=== PATIENT | female | born 1980 | race Caucasian/White ===

== ENCOUNTER 2023-10-23 07:33 | Emergency (ER) | payer BC, SELFPAY ==
--- NOTE | ~2023-10-23 | XR_ITS ---
EXAMINATION: XR CHEST CLINICAL INFORMATION: Chest pain. COMPARISON: None available. TECHNIQUE: Frontal view of the chest was obtained. FINDINGS: The lungs are well-expanded. No focal consolidation. No pleural effusion. Cardiac silhouette is within normal limits. XR/XR chest 1V IMPRESSION: No acute abnormality. Electronically signed by: Gabriel Floyd MD 10/23/2023 10:27 AM EDT
--- NOTE | 2023-10-23 07:40 | ECG_ITS ---
Test Reason : chest pain Blood Pressure : / mmHG Vent. Rate : 079 BPM Atrial Rate : 079 BPM P-R Int : 164 ms QRS Dur : 080 ms QT Int : 398 ms P-R-T Axes : 021 031 035 degrees QTc Int : 456 ms Normal sinus rhythm Normal ECG No previous ECGs available Referred By: Generic ED Physician Electronically Signed By:HILLARY GOFF
[2023-10-23 07:42] VITALS: BP 133/71; PULSE 77; RESP 16; TEMP 36.6; BMI 52.2
--- NOTE | 2023-10-23 08:25 | ED.BACK ---
HPI - Back Pain/Injury General Chief Complaint: Back Pain/Injury Stated Complaint: CP-back pain Time Seen by Provider: 10/23/23 07:42 Source: patient and family Mode of arrival: ambulatory Limitations: no limitations History of Present Illness ED Provider: ROSI PAGAN Narrative: 43 yo female with PMH of asthma, obesity, HTN here with c/o going for a walk Friday nothing unusual occurred no trauma then she now notes L upper posterior back pain worse with movements and deep breaths. She denies recent travel/procedures, not on OCPs. She has never had VTE before. She has no chest pain. Tried tyelnol without relief today. No recent URI today. MD elicited complaint: back pain Onset (ago): day(s) (4) Timing: constant Severity: moderate Similar Symptoms Previously: No Location: left upper back Radiation: none Exacerbating factors: movement and deep breaths Relieving factors: none Context: unknown Associated symptoms: denies other symptoms Treatments prior to arrival: acetaminophen Work related injury: No Related Data Previous Rx's ?Medication ?Instructions ?Recorded cyclobenzaprine 10 mg tablet 10 mg PO TID PRN muscle spasm #20 10/23/23 tabs ibuprofen 600 mg tablet 600 mg PO Q6H PRN pain #30 tabs 10/23/23 Allergies Allergy/AdvReac Type Severity Reaction Status Date / Time acetaminophen [From Percocet] AdvReac Nausea and Verified 10/23/23 07:47 Vomiting oxycodone [From Percocet] AdvReac Nausea and Verified 10/23/23 07:47 Vomiting Review of Systems Review of Systems: Constitutional : No Weight loss, No Fever, No Chills, ENT/Mouth : No Hearing loss, No Ear Pain, No Nasal Congestion, No Sinus Pain, No Hoarseness, No sore throat, No Rhinorrhea, No Swallowing Difficulty Cardiovascular : No Chest Pain, No SOB Respiratory : No Cough, No Dyspnea Gastrointestinal : No Nausea, No Vomiting, No Diarrhea, No abdominal Pain, No Hematochezia, No Melena Genitourinary : No Dysuria, No Urinary Frequency, No Hematuria, No Urinary Incontinence, Musculoskeletal : positive back pain Skin : No Skin Lesions, No rash Neuro : No Weakness, No Numbness, No Paresthesias, no loss of bowel or bladder incontinence, no saddle anesthesia all other systems reviewed and are negative [facility] Past Medical History Attestation statement: The following information was validated with the patient. Source: old records reviewed Medical History HTN (hypertension) Asthma Social History Social History Alcohol intake: current Alcohol intake frequency: a few times a month Alcohol type: wine Smoked in Last 30 Days: No Use of substances other than those prescribed or required for medical reasons: No Advance Directives: Yes Advance Directives Information Provided: Yes Advance Directives on File: No Do you have a plan to hurt others: No Plan Patient : No Physical Exam Vital Signs: Vital Signs: Last Vital Signs Temp 97.9 F 10/23/23 07:42 Pulse 77 10/23/23 07:42 Resp 16 10/23/23 07:42 BP 133/71 10/23/23 07:42 O2 Del Method Room Air 10/23/23 07:42 BMI result Body Mass Index 52.2 Appearance: Alert. Oriented X3. No acute distress. Eyes: Pupils equal, round and reactive to light. ENT: Pharynx normal. Neck: Normal inspection. Neck supple. CVS: Normal heart rate and rhythm. Pulses normal. Respiratory: No respiratory distress. Breath sounds normal. Abdomen: Soft and nontender. Back: L upper ttp with palpation to rhomboids Skin: Skin warm and dry. Normal skin color. Normal skin turgor. Extremities: No lower extremity edema. No calf ttp Neuro: Oriented X 3. No motor deficit. No sensory deficit. Medications Administered Discontinued Medications Generic Name Dose Route Start Last Admin Trade Name Ramu PRN Reason Stop Dose Admin Cyclobenzaprine HCl 10 mg 10/23/23 08:16 10/23/23 08:49 Cyclobenzaprine Hcl 10 Mg Tablet PO 10/23/23 08:17 10 mg ONCE ONE Administration Ketorolac Tromethamine 15 mg 10/23/23 08:16 10/23/23 08:49 Ketorolac Tromethamine 15 Mg/Ml Vial IVPUSH 10/23/23 08:17 15 mg ONCE ONE Administration Medical Decision Making Medical Decision Making MDM Narrative: 43 yo female with PMH of asthma, obesity, HTN here with c/o L upper back pain that is worse with movements and pleuritic in nature she is obese so she could have VTE there was no known trauma though it is reproduceable at this time labs, EKG, CXR, ddimer - start on toradol and flexeril. Low to mod probabiility of VTE. Differential Diagnosis Differential Diagnoses: The differential diagnosis associated with the presentation includes back pain, muscle spasm, VTE Admission/Observation Consideration of admission/observation: Escalation of care including admission/observation considered work up negative at this time stable for DC Lab Data MDM Lab Attestation statement: I reviewed the patient's lab results. 10/23/23 09:26 10/23/23 09:26 Labs: Lab Results 10/23/23 Range/Units 09:26 WBC 8.3 (4.8-10.8) X10*3/uL RBC 4.87 (4.20-5.50) X10*6/uL Hgb 14.0 (12.0-16.0) g/dl Hct 42.9 (37.0-47.0) % MCV 88.1 (80.0-98.0) fL MCH 28.7 (27.0-33.0) pg MCHC 32.6 (31.0-35.0) g/dl RDW 12.6 (11.0-16.0) % Plt Count 353 (160-400) X10*3/uL MPV 9.3 L (9.4-12.3) fL Immature Gran % (Auto) 0.4 (0.0-0.4) % Neut % (Auto) 62.5 (45-73) % Lymph % (Auto) 27.1 (20-40) % [place] % (Auto) 8.1 (2-11) % Eos % (Auto) 1.4 (0-4) % Baso % (Auto) 0.5 (0-2) % Lymph # (Auto) 2.2 (1.2-4.9) X10*3/uL [place] # (Auto) 0.7 (0.1-1.2) X10*3/uL Eos # (Auto) 0.1 (0.0-0.4) X10*3/uL Baso # (Auto) 0.0 (0.0-0.2) X10*3/uL Abs Immat Gran (auto) 0.03 (0.00-0.03) X10*3/uL Absolute Neuts (auto) 5.2 (2.0-8.3) x10*3/uL Absolute Nucleated RBC 0.000 (0.0-0.012) X10*3/uL Nucleated RBC % (auto) 0.0 (0.0-0.2) /100WBC D-Dimer High Sensitivty < 150 NG/ML Sodium 141 (135-145) mmol/L Potassium 3.8 (3.3-5.1) mmol/L Chloride 106 (96-108) mmol/L Carbon Dioxide 26 (22-29) mmol/L Anion Gap 13 (12-20) BUN 12 (9-16) mg/dL Creatinine 0.64 (0.5-1.4) mg/dL Estim Creat Clear Calc 148.8 Estimated GFR > 60 Random Glucose 100 (60-115) mg/dL Calcium 9.8 (8.4-10.2) mg/dL Magnesium 2.0 (1.6-2.6) mg/dL Total Bilirubin 0.5 (0.0-1.0) mg/dL Direct Bilirubin 0.2 (0.0-0.5) mg/dL AST 17 (5-31) U/L ALT 18 (0-31) U/L Alkaline Phosphatase 76 (39-117) U/L Troponin I High Sens < 2.7 (<3.5-17.0) ng/L B-Natriuretic Peptide 114 H (<100) pg/mL Total Protein 6.9 (6.5-8.0) g/dL Albumin 4.0 (3.5-5.0) g/dL Independent Interpretation I performed an independent interpretation of an: EKG and Plain X-Ray (normal) Interpretation: Rate: 79 Rhythm: NSR [place]: normal Normal P waves. Normal JYOTI. Normal QRS complex. ST T wave : normal no TOM, inverted t wave V1 qTC: 456 prior studies: no acute ischemia The study has been interpreted contemporaneously by me. . Radiology Impression Discussion of test interpretation with radiology: I have reviewed the radiologist's reading. Independent Historian Clinical information obtained from an independent historian. History obtained from or confirmed by: Parent External Record Review External record reviewed: Office record Prescription Management I considered prescription management with: Pain Medication Discharge Plan Discharge Clinical Impression: Thoracic back pain Qualifiers: Chronicity: acute Back pain laterality: left Qualified Code(s): M54.6 - Pain in thoracic spine Patient Disposition: Home, Self-Care Instructions: Thoracic Pain (ED) Additional Instructions: labs reassuring today including heart tests, negative test for blood clot chest xray negative EKG reassuring will treat as MSK pain return for worsening pain, numbness, weakness or any other concerns. Prescriptions: New cyclobenzaprine 10 mg tablet 10 mg PO TID PRN (Reason: muscle spasm) Qty: 20 0RF ibuprofen 600 mg tablet 600 mg PO Q6H PRN (Reason: pain) Qty: 30 0RF Stand Alone Forms: Work/School Release Print Language: Bel[place]ian
[2023-10-23] MEDS: Ketorolac Tromethamine 15 MG/ML VIAL IVPUSH (08:49)
[2023-10-23] MEDS: Cyclobenzaprine HCl 10 MG TABLET PO (08:49)
[2023-10-23 09:37] LABS: MANUAL DIFF FLAG NO
[2023-10-23 09:39] LABS: Basophils Percent Auto 0.5 % (0-2); Eosinophils Absolute Auto 0.1 X10*3/uL (0.0-0.4); Eosinophils Percent Auto 1.4 % (0-4); Hematocrit 42.9 % (37.0-47.0); Imm Gran Abs Auto 0.03 X10*3/uL (0.00-0.03); Imm Gran Pct Auto 0.4 % (0.0-0.4); Lymphocytes Absolute Auto 2.2 X10*3/uL (1.2-4.9); Lymphocytes Percent Auto 27.1 % (20-40); Mean Corpuscular HGB Conc 32.6 g/dl (31.0-35.0); Mean Corpuscular Hemoglobin 28.7 pg (27.0-33.0); Mean Corpuscular Volume 88.1 fL (80.0-98.0); Mean Platelet Volume 9.3 fL (9.4-12.3); Monocytes Absolute Auto 0.7 X10*3/uL (0.1-1.2); Monocytes Percent Auto 8.1 % (2-11); Neutrophils Absolute Auto 5.2 x10*3/uL (2.0-8.3); Neutrophils Percent Auto 62.5 % (45-73); Platelet Count 353 X10*3/uL (160-400); Red Blood Count 4.87 X10*6/uL (4.20-5.50); Red Cell Distribution Width 12.6 % (11.0-16.0); White Blood Count 8.3 X10*3/uL (4.8-10.8)
[2023-10-23 09:48] LABS: D Dimer High Sensitivity < 150 NG/ML
[2023-10-23 09:53] LABS: Alanine Aminotransferase 18 U/L (0-31); Alkaline Phosphatase 76 U/L (39-117); Anion Gap 13 (12-20); Aspartate Amino Transferase 17 U/L (5-31); Bilirubin Direct 0.2 mg/dL (0.0-0.5); Bilirubin Total 0.5 mg/dL (0.0-1.0); Blood Urea Nitrogen 12 mg/dL (9-16); Calcium 9.8 mg/dL (8.4-10.2); Carbon Dioxide 26 mmol/L (22-29); Chloride 106 mmol/L (96-108); Creatinine Clr Calc Pharmacy 148.8; Estimated Glomerular Filt Rate > 60; Glucose Random 100 mg/dL (60-115); Potassium 3.8 mmol/L (3.3-5.1); Sodium 141 mmol/L (135-145); Total Protein 6.9 g/dL (6.5-8.0)
[2023-10-23 09:59] LABS: B Type Natriuretic Peptide 114 pg/mL (<100)
[2023-10-23 10:00] LABS: Troponin-I High Sensitivity < 2.7 ng/L (<3.5-17.0)
[2023-10-23 10:40] VITALS: BP 133/71; PULSE 77; RESP 16; TEMP 36.6
== END 2023-10-23 10:47 | disposition home or self-care (01) ==
PROVIDERS: Emergency Provider Emergency Medicine; PCP Nurse Practitioner Family
DX: M54.6 Pain in thoracic spine (principal); R07.9 Chest pain, unspecified; I10 Essential (primary) hypertension; J45.909 Unspecified asthma, uncomplicated; E66.01 Morbid (severe) obesity due to excess calories; Z68.43 Body mass index [BMI] 50.0-59.9, adult
CPT/HCPCS: 36415; 71045; 80048; 80076; 83735; 83880; 84484; 85025; 85379; 93005; 96374; 99284; 99285; J1885